=== PATIENT | female | born 1970 | race Caucasian/White ===

== ENCOUNTER 2018-12-08 13:45 | Inpatient (IN) ==
--- NOTE | 2018-12-08 13:54 | History & Physical Report ---
Date of Encounter: 12/08/18 Time of Encounter: 13:53 24 Hour HP Update - Instructions Instructions: If the History and Physical is less than 30 days old and was completed prior to A.M. admission and or procedure and has NOT been updated on calendar day of procedure please complete this update prior to performing procedure. - Update Patient reports changes in Medical Condition: No Changes in examination, assessment, or condition: No Changes in Medication: No Preop tests/diagnostics Reviewed: Yes Surgery Remains Indicated: Yes Consent for Planned Operative Procedure(s) Verified: Yes - Pre-Operative Checklist Preoperative Checklist Indicated: No Prophylactic Antibiotic Ordered: Yes Is VTE Prophylaxis Indicated?: Yes
[2018-12-08] MEDS ORDERED: CeFAZolin Syr 2,000MG/20 ML 2,000 MG/20 ML SYRINGE IVPB ONE (14:09)
[2018-12-08] MEDS ORDERED: Albuterol 2.5 MG/3 ML NEBULIZER IH ONE (14:09)
[2018-12-08] MEDS ORDERED: Ringers Solution, Lactated 1,000 ML IVC SCH (14:15)
--- NOTE | 2018-12-08 15:00 | Anesthesia Evaluation PreOp ---
Date of Encounter: 12/08/18 Time of Encounter: 14:58 - Past History Planned Operation: Right Total Hip Arthroplasty Cardiac History: Hyperlipidemia Pulmonary History: Smoker (21 years), Asthma, Snore ECHOCARDIOGRAPHY RADIOLOGY TECHNOLOGIST History: Denies Any Significant HX Other Medical History: GERD, Other (RA) Anesthesia History: No Prior Anesthetic Complications, Past Anesthesia (hysterectomy, gastric bypass) Alcohol Use: none Drug use: marijuana Medications and Allergies Cyanocobalamin (Vitamin B-12) [Vitamin B-12] 1,000 mcg SL DAILY 02/27/17 [History] Iron Ps Complex/B12/Folic Acid [Iferex 150 Forte Capsule] 1 cap PO DAILY 02/27/17 [History] Omeprazole [PriLOSEC] 40 mg PO DAILY PRN 02/27/17 [History] Atorvastatin Calcium [Lipitor] 20 mg PO HS 12/08/18 [History] Folic Acid 1 mg PO DAILY 12/08/18 [History] Allergy/AdvReac Type Severity Reaction Status Date / Time hydrocodone AdvReac Itching Verified 12/08/18 14:14 sulfamethoxazole AdvReac Itching Verified 12/08/18 14:14 [From Bactrim] trimethoprim [From Bactrim] AdvReac Itching Verified 12/08/18 14:14 ivp dye Allergy Difficulty Uncoded 02/27/17 12:04 Breathing tape AdvReac Rash Uncoded 12/08/18 14:15 - Meds/Allergy Pre-op Review Medications Reviewed: Yes Allergies Reviewed: Yes Beta Blockers on Current Med List: No Anesthesia Results - Labs Laboratory Tests 11/22/18 11/22/18 11/22/18 12:32 12:32 12:32 WBC 8.0 Hgb 16.0 H Hct 49.1 H Plt Count 339 PT 9.2 L INR 0.8 APTT 33.8 Sodium 143 Potassium 3.7 BUN 8 Creatinine 0.53 L Anesthesia Exam O2 Sat Height 1.68 m Weight 55.338 kg O2 Sat by Pulse Oximetry 96 O2 Sat by Pulse Oximetry 96 Vital Signs Temp Pulse Resp BP Pulse Ox 98.6 F 61 18 133/70 96 12/08/18 13:59 12/08/18 13:59 12/08/18 13:59 12/08/18 13:59 12/08/18 13:59 Height: 5'6'' Weight: 122 lbs NPO (# of Hours): 8 Pain Scale: 7 (right hip) Pain Scale Used: Numeric (1 - 10) - HEENT Pupil (Motor): EOMI Mallampati: II Teeth: Poor dentition Oral Opening: Greater than 3 - ECHOCARDIOGRAPHY RADIOLOGY TECHNOLOGIST LOC: Oriented ECHOCARDIOGRAPHY RADIOLOGY TECHNOLOGIST Motor: Normal RUE, Normal LUE, Normal LLE, Normal Face, Deficit RLE ECHOCARDIOGRAPHY RADIOLOGY TECHNOLOGIST Sensory: Normal: RUE, LUE, RLE, LLE, Face - Cardiac Rhythm: Regular Murmur: None - Pulmonary Breath Sounds: bilateral Clear Respiratory Effort: Symmetrical Anesthesia Assess/Plan ASA Score: 2 Level of consciousness: Cooperative, Oriented, Tranquil Anesthetic Plan: General Monitoring Plan: Standard Monitors Recovery Plan: PACU
[2018-12-08] MEDS ORDERED: *HR* Midazolam HCl 2 MG/2 ML VIAL ONE (15:09)
[2018-12-08] MEDS ORDERED: *HR* FentaNYL (PF) 100 MCG/2 ML VIAL ONE ×2 (15:09→17:18)
[2018-12-08] MEDS ORDERED: Lidocaine -MPF 2% 2 ML VIAL ONE (15:12)
[2018-12-08] MEDS ORDERED: Dexamethasone 4 MG/ML VIAL ONE ×2 (15:13→16:34)
[2018-12-08] MEDS ORDERED: Ondansetron 4 MG/2 ML VIAL ONE ×2 (15:13→16:34)
[2018-12-08] MEDS ORDERED: Gabapentin 300 MG CAPSULE PO ONE (15:27)
[2018-12-08] MEDS ORDERED: Ondansetron 4 MG/2 ML VIAL IVP ONE (15:28)
[2018-12-08] MEDS ORDERED: *HR* OxyCODONE ER (12 HR) 10 MG TABLET PO ONE (15:28)
[2018-12-08] MEDS ORDERED: *HR* OxyCODONE Immed Rel 5 MG TABLET PO PRN (15:28)
[2018-12-08] MEDS ORDERED: *HR* Succinylcholine 200 MG/10 ML VIAL IVP ONE (16:34)
[2018-12-08] MEDS ORDERED: *HR* Propofol 200 MG/20 ML VIAL IVP ONE (16:34)
[2018-12-08] MEDS ORDERED: Ethanol\\Acetic Acid\\Na Ace\\Ben 1,000 ML IRRIG.SOLN IR ONE (16:41)
[2018-12-08] MEDS ORDERED: Tranexamic Acid 1,000 MG/10 ML VIAL ONE (16:42)
--- NOTE | 2018-12-08 17:04 | Discharge Summary ---
Date of Encounter: 12/09/18 Time of Encounter: 09:50 - Discharge Diagnosis (1) Arthritis of right hip Priority: Primary Status: Chronic (2) Status post total hip replacement, right Priority: Primary Status: Acute (3) Tobacco dependence Priority: Secondary Status: Chronic (4) Medical marijuana use Priority: Secondary Status: Chronic (5) GERD (gastroesophageal reflux disease) Priority: Secondary Status: Chronic Qualifiers: Esophagitis presence: esophagitis presence not specified Qualified Code(s): K21.9 - Gastro-esophageal reflux disease without esophagitis (6) History of pelvic surgery Priority: Secondary Status: Chronic (7) Chronic pain Priority: Secondary Status: Chronic Qualifiers: Chronic pain type: other chronic pain Qualified Code(s): G89.29 - Other chronic pain - Hospital Course Hospital course: Ms. Srinivasan is a 47 year old female s/p Right Total Hip Replacment robotic-assisted [Right hip arthritis retained hardware within the acetabulum] 12/08/18 Patient seen at bedside. Admits to some nausea and dizziness this morning that per patient has resolved. A&Ox3 Dressing and incision c/d/i No calf tenderness, erythema, or warmth. Neurovascularly intact b/l LE. Labwork, vitals, and medications reviewed. Pain control: Adequate Participating in therapy. All questions and concerns addressed. Educated on use of incentive spirometer, ambulation, and hydration. Patient educated on post-operative restrictions and care. Addressed: see above. The patient's postoperative course was uneventful. Progressed from intravenous analgesic needs to oral analgesic needs only. Remained neurovascularly intact and mobilized satisfactorily. All radiographic studies were satisfactory. Patient course and disposition discussed with Dr. Pearce. Patient is discharged to home with outpatient therapy as plan for rehabilitation and outpatient orthopedic follow up has been arranged. - Time Spent with Patient Total time spent providing and/or coordinating discharge services: - Discharge Medications Prescriptions: New Aspirin Enteric Coated [Aspirin EC] 325 mg PO BID 10 Days #20 tablet. Docusate Sodium [Colace] 100 mg PO BID 5 Days #10 capsule Acetaminophen [Non-Aspirin Extra Strength] 500 mg PO Q6H PRN 7 Days #28 tablet PRN Reason: Mild To Moderate Pain OxyCODONE Immed Rel [Roxicodone 5 MG] 5 mg PO Q6HR PRN 5 Days #20 tablet PRN Reason: Severe Pain Continued Omeprazole [PriLOSEC] 40 mg PO DAILY PRN PRN Reason: Heartburn Iron Ps Complex/B12/Folic Acid [Iferex 150 Forte Capsule] 1 cap PO DAILY Cyanocobalamin (Vitamin B-12) [Vitamin B-12] 1,000 mcg SL DAILY Atorvastatin Calcium [Lipitor] 20 mg PO HS Folic Acid 1 mg PO DAILY Home Medications: Cyanocobalamin (Vitamin B-12) [Vitamin B-12] 1,000 mcg SL DAILY 02/27/17 [History] Iron Ps Complex/B12/Folic Acid [Iferex 150 Forte Capsule] 1 cap PO DAILY 02/27/17 [History] Omeprazole [PriLOSEC] 40 mg PO DAILY PRN 02/27/17 [History] Acetaminophen [Non-Aspirin Extra Strength] 500 mg PO Q6H PRN 7 Days #28 tablet 12/08/18 [Rx] Aspirin Enteric Coated [Aspirin EC] 325 mg PO BID 10 Days #20 tablet. 12/08/18 [Rx] Atorvastatin Calcium [Lipitor] 20 mg PO HS 12/08/18 [History] Docusate Sodium [Colace] 100 mg PO BID 5 Days #10 capsule 12/08/18 [Rx] Folic Acid 1 mg PO DAILY 12/08/18 [History] OxyCODONE Immed Rel [Roxicodone 5 MG] 5 mg PO Q6HR PRN 5 Days #20 tablet 12/08/18 [Rx] Allergies/Adverse Reactions: Allergy/AdvReac Type Severity Reaction Status Date / Time hydrocodone AdvReac Itching Verified 12/08/18 14:14 sulfamethoxazole AdvReac Itching Verified 12/08/18 14:14 [From Bactrim] trimethoprim [From Bactrim] AdvReac Itching Verified 12/08/18 14:14 ivp dye Allergy Difficulty Uncoded 02/27/17 12:04 Breathing tape AdvReac Rash Uncoded 12/08/18 14:15 Date of admission: 12/08/18 Primary care physician: Dino Colvin MD Discharging clinician: Cheikh Pearce Anticipated date of discharge: 12/09/18 - VTE Documentation of Mechanical Device: Venous foot pump, device - Patient Status Disposition: Home, Self-Care Condition: Good Functional capacity at discharge: uses cane/walker Overall status at discharge: patient is progressing back to baseline - Discharge Instructions Follow Up With: Dino Colvin MD [Primary Care Provider] - - Diet and Activity Activity: as per physical therapy Diet: advance to your usual diet
[2018-12-08] MEDS ORDERED: Ketorolac 30 MG/ML VIAL ONE (17:52)
--- NOTE | 2018-12-08 17:53 | Orthopedic Operative Note ---
Date of procedure: 12/08/18 Pre-op diagnosis: Right hip arthritis retained hardware within the acetabulum Post-op diagnosis: same Procedure: Procedure: Right Total Hip Replacment robotic-assisted Estimated blood loss: 200 cc Hardware: Metal and polyethylene replacement. Charleen DM Cup: 54 cup one 6.5 cancellus screw Femoral size 5 anteverted anato stem Head: 8 head with Shelby Procedural Notes: Grade 4 arthritic changes femoral head acetabular socket with a portion of the plate within the acetabulum, procedure performed with robotic assistance. Operative procedure: The patient was brought to the operating room and placed on the operating room table. After anesthesia was administered the patient was placed in the lateral decubitus position with the operative leg up. All pressure points were padded appropriately and the head was stabilized in the neutral position. The operative extremity was prepped and draped in the sterile surgical fashion patient received IV antibiotic prior to skin incision. 3 Steinmann pins were placed in the iliac crest 3 cm proximal to the anterior superior iliac spine this was for the robotic-assisted sensor. This was done through a small 2 cm incision. A standard posterior approach is made to the operative hip, the incision was made through the skin and subcutaneous tissue hemostasis was obtained with Bovie cautery. Using careful sharp dissection the fascia was identified and incised exposing the external rotators. The greater trochanter was marked, and length was measured at this time utilizing robotic assistance. The external rotators were released off the greater trochanter and tagged with #2 FiberWire suture. The capsule was T'd open and the hip was brought into internal rotation. Patient noted to have grade 4 arthritic changes with severe deformity of the femoral head. The femoral neck cut was made at the appropriate level roughly 15 mm proximal to the lesser trochanter aced on preoperative templating. An anterior capsulotomy was performed for the anterior retractor. Soft tissues removed from the acetabulum. Patient noted to have grade 4 arthritic changes acetabulum. Patient also had a portion of her plate from her previous acetabular fixation penetrating within the acetabular socket. This was debrided back with a metal cutting rasp. The acetabulum reference point was confirmed. The acetabulum was then mapped with robotic assistance. Based on the preoperative plan the acetabulum was reamed in one step with a 54 reamer. The 54 acetabulum was impacted with robotic assistance and 34 degrees of abduction and 16 degrees of anteversion. Fixation was augmented with one anterior superior screw. The hip was brought back in to internal rotation and prepared with the weigh box tender followed by the canal finder followed by the reaming process to a size 12 broaching process in 20 degrees anteversion. It was broached up to the appropriate size 5 Trial reduction revealed leg lengths close to normal. The femoral implant was impacted in place in 20 degrees of anteversion. Trial reduction found the hip to be stable with 8 head and Shelby. The trials were removed and the real implants were impacted in place. The hip was reduced, patient had robotic confirmed leg length of 5 mm longer than the contralateral side. The hip had excellent stability with forward flexion to 90 degrees adduction of 30 degrees and internal rotation of 60 degrees. The hip had no shuck. The hip sat with an antibacterial solution. It was irrigated out with 2 L of pulse irrigation. The Steinmann pins were removed. The hip was closed by the PA. The deep tissue was irrigated and closed deep with #1 PDS suture superficially with 0 PDS suture and skin was closed with skin steven and zip tie. The patient was placed in a sterile dressing and abduction pillow. The patient was transferred to the recovery room in stable condition. Anesthesia: GETA Surgeon: Cheikh Pearce Was there an occupational therapy assistant present: Yes Trim Carpenter: Anam Arreguin Estimated blood loss (cc): 200 Condition: stable Disposition: PACU
[2018-12-08] MEDS ORDERED: *HR* Enoxaparin 30 MG/0.3 ML SYRINGE SQ SCH (18:00)
[2018-12-08] MEDS: *HR* HYDROmorphone (PF) 1 MG/ML SYRINGE IVP PRN ×2 (18:32→18:37)
--- NOTE | 2018-12-08 18:55 | Anesthesia Evaluation Post Op ---
Date of Encounter: 12/08/18 Time of Encounter: 18:54 - Vital Signs Vital Signs: Vital Signs/O2 Sat, Most Current Temp Pulse Resp BP Pulse Ox 97.8 F 89 16 107/57 96 12/08/18 18:49 12/08/18 18:49 12/08/18 18:49 12/08/18 18:49 12/08/18 18:49 - Lungs Lungs: Clear Ascult./Percussion - Airway Airway: Non-obstructed - Cardiovascular Regular Rate - Mental Status Mental Status: Alert & Oriented, Answers Appropriately - Pain Pain Scale: 5 Pain Scale used: Numeric (1 - 10) (tolerable) - Nausea Vomiting Nausea Vomiting: Not Present - Hydration Hydration: Tolerates oral liquids - Discharge PostOp Status: Transfer Patient to floor
[2018-12-08] MEDS ORDERED: Sennosides 8.6 MG TABLET PO PRN (19:00)
[2018-12-08] MEDS ORDERED: HYDROcodone BIT/Homatropine 5 MG TABLET PO PRN (19:00)
[2018-12-08] MEDS ORDERED: Naloxone 0.4 MG/ML INJ IVP PRN (19:00)
[2018-12-08] MEDS ORDERED: MOM Conc 10 ML UD.LIQ PO PRN (19:00)
[2018-12-08] MEDS ORDERED: traMADol 50 MG TABLET PO PRN (19:00)
[2018-12-08] MEDS ORDERED: Temazepam 15 MG CAPSULE PO PRN (19:00)
[2018-12-08] MEDS ORDERED: Ondansetron 4 MG/2 ML VIAL IVP PRN (19:00)
[2018-12-08] MEDS ORDERED: *HR* Promethazine 25 MG/ML VIAL IVP PRN (19:00)
[2018-12-08 19:05] LABS: Hematocrit 43.3 % (35.3-44.9); Hemoglobin 14.2 g/dL (11.5-15.4)
[2018-12-08] MEDS: Ringers Solution, Lactated 1,000 ML IVC SCH (21:30)
[2018-12-08] MEDS: Ascorbic Acid 500 MG TABLET PO SCH (21:32)
[2018-12-08] MEDS: *HR* OxyCODONE Immed Rel 5 MG TABLET PO PRN (23:31)
[2018-12-09 05:25] LABS: Basophils % 0.1 %; Hematocrit 38.9 % (35.3-44.9); Immature Granulocytes % 0.4 % (0-4); Lymphocytes # 0.3 K/mcL (0.6-4.6); Lymphocytes % 3.6 %; Mean Corpuscular HGB Conc 32.1 g/dL (31.6-35.5); Mean Corpuscular Volume 105.7 fL (83.0-100.0); Mean Platelet Volume 11.2 fL (9.4-12.4); Monocytes # 0.8 K/mcL (0.0-1.3); Monocytes % 8.7 %; Neutrophils # 8.1 K/mcL (1.6-8.9); Platelet Count 196 K/mcL (140-400); Red Blood Count 3.68 M/mcL (3.82-4.97); Red Cell Distribution Width 12.2 % (11.5-14.5); Segmented Neutrophils % 87.2 %; White Blood Count 9.3 K/mcL (4.3-11.1)
[2018-12-09 05:27] LABS: Hemoglobin 12.5 g/dL (11.5-15.4)
[2018-12-09 05:45] LABS: BUN/Creatinine Ratio 15 (6-26); Blood Urea Nitrogen 7 mg/dL (6-20); Calcium 8.8 mg/dL (8.6-10.3); Carbon Dioxide 27 mEq/L (23-29); Chloride 96 mEq/L (98-107); Glucose 177 mg/dL (70-105); Osmolality,Calculated 278 (280-300); Sodium 133 mEq/L (136-145); eGFR For African Americans > 60 (> 60); eGFR For Non-African Americans > 60 (> 60)
[2018-12-09] MEDS ORDERED: *HR* Enoxaparin 30 MG/0.3 ML SYRINGE SQ SCH (06:00)
--- NOTE | 2018-12-09 06:21 | Orthopedics Progress Note ---
Date of Encounter: 12/09/18 Time of Encounter: 06:21 Subjective Interval history: Patient was seen this morning doing well without complaints. Afebrile vital signs stable. Operative extremity: Neurovascularly intact Dressing clean dry and intact Calves nontender Assessment and plan: Continue with postoperative care Hematocrit 38 Objective Vital signs: Vital Signs Temp Pulse Resp BP Pulse Ox 12/09/18 03:23 98.0 F 57 16 123/83 97 12/08/18 23:14 97.7 F 64 17 133/66 97 12/08/18 21:20 97.6 F 90 16 108/59 99 12/08/18 20:20 97.5 F L 92 16 116/78 98 12/08/18 19:50 98.1 F 85 16 107/57 98 12/08/18 19:20 99.5 F 88 17 102/68 96 12/08/18 18:59 97.8 F 81 14 107/54 96 12/08/18 18:49 97.8 F 89 16 107/57 96 12/08/18 18:39 89 16 92/53 96 12/08/18 18:29 89 18 113/45 97 12/08/18 18:19 98 F 90 18 129/68 97 12/08/18 14:40 18 133/70 96 12/08/18 13:59 98.6 F 61 18 133/70 96 Intake and Output 12/08/18 12/08/18 12/09/18 15:59 23:59 07:59 Intake Total 20 / 20 600 / 600 Output Total 400 / 400 0 / 0 Balance -380 / -380 600 / 600 Intake: IV Fluids 20 / 20 100 / 100 Ancef Syringe 2,000 MG/20 ML 2, 20 / 20 000 mg In 20 ml @ 200 mls/hr IVPB PREOP ONE Rx#:[id number] Ancef 2,000 MG In 0.9 % Sodium 100 / 100 Chloride 100 ML @ 200 mls/hr IVPB Q8HR [facility] Rx#:[id number] Oral 500 / 500 Output: Urine 200 / 200 0 / 0 Estimated Blood Loss 200 / 200 Other: Weight 55.338 kg 56.09 kg Blood Glucose* 118 207 Patient Weight 12/09/18 23:59 Weight 56.09 kg - Labs CBC & BMP: 12/09/18 03:40 12/09/18 03:40 Labs: Abnormal lab results RBC 3.68 M/mcL (3.82-4.97) L 12/09/18 03:40 MCV 105.7 fL (83.0-100.0) H 12/09/18 03:40 MCH 34.0 pg (28.0-33.3) H 12/09/18 03:40 Lymphocytes # 0.3 K/mcL (0.6-4.6) L 12/09/18 03:40 Sodium 133 mEq/L (136-145) L 12/09/18 03:40 Chloride 96 mEq/L (98-107) L 12/09/18 03:40 Creatinine 0.46 mg/dL (0.60-1.20) L 12/09/18 03:40 Glucose 177 mg/dL (70-105) H 12/09/18 03:40 Calculated Osmolality 278 (280-300) L 12/09/18 03:40 - VTE Documentation of Mechanical Device: Venous foot pump, device Consult Discharge Plan - Plan Referrals: Dino Colvin MD [Primary Care Provider] -
[2018-12-09 06:48] VITALS: BP 122/69
[2018-12-09] MEDS: *HR* OxyCODONE Immed Rel 5 MG TABLET PO PRN ×2 (08:20→14:24)
[2018-12-09] MEDS: Ascorbic Acid 500 MG TABLET PO SCH (08:20)
[2018-12-09] MEDS: Ringers Solution, Lactated 1,000 ML IVC SCH (08:36)
[2018-12-09] MEDS ORDERED: Multivit/Ca/Min/Fe/FA 1 TAB TABLET PO SCH (09:00)
[2018-12-09] MEDS ORDERED: Folic Acid 1 MG TABLET PO SCH (09:00)
[2018-12-09] MEDS ORDERED: Iron Polysaccharide Complex 150 MG CAPSULE PO SCH (09:00)
[2018-12-09] MEDS ORDERED: Cyanocobalamin (B-12) 1,000 MCG TABLET PO SCH (09:00)
[2018-12-09] MEDS ORDERED: FLU Vac QV 19-20 (6Month+)/PF 0.5 ML SYRINGE IM ONE ×2 (14:15→14:40)
== END 2018-12-09 15:02 | disposition home or self-care (01) | DRG 301 ==
LOC: SAMDAY 13:45 → 3NENU 19:41
PROVIDERS: ADMIT Orthopaedic Surgery; ATTEND Orthopaedic Surgery